=== PATIENT | male | born 1950 | race Caucasian/White ===

== ENCOUNTER 2023-04-05 03:46 | Day surgery (SDC) | payer OTHER ==
[2023-04-01 09:37] VITALS: BMI 26.5
[~2023-04-05 03:46] MED LIST: BUPIVACAINE HCL/PF 0.5% (5MG/ML) 10 ML VIAL IJ ONE
[2023-04-05] MEDS ORDERED: MIDAZOLAM HCL 2 MG/2 ML SINGLE DOSE VIAL ONE (09:11)
[2023-04-05] MEDS ORDERED: LIDOCAINE HCL/PF 2% SDV 5ML VIAL ONE (09:11)
[2023-04-05] MEDS ORDERED: PROPOFOL 20 ML ONE (09:11)
[2023-04-05] MEDS ORDERED: ROPIVACAINE HCL 0.5% 30ML VIAL ONE (09:12)
[2023-04-05] MEDS ORDERED: BUPIVACAINE HCL/PF 0.5% (5MG/ML) 10 ML VIAL ONE (09:25)
[2023-04-05] MEDS ORDERED: LIDOCAINE HCL/PF 1% SDV 5ML VIAL ONE (09:28)
[2023-04-05] MEDS ORDERED: ceFAZolin SODIUM 1 GM VIAL ONE (09:43)
[2023-04-05] MEDS ORDERED: ceFAZolin SODIUM 1 GM VIAL IVPB ONE (09:45)
[2023-04-05] MEDS ORDERED: DEXAMETHASONE SOD PHOSPHATE 4 MG/1 ML VIAL ONE (10:07)
[2023-04-05] MEDS ORDERED: ONDANSETRON 4 MG/2 ML VIAL ONE (10:07)
[2023-04-05] MEDS ORDERED: KETOROLAC TROMETHAMINE 30 MG/1 ML VIAL ONE (10:35)
[2023-04-05] MEDS ORDERED: ONDANSETRON 4 MG/2 ML VIAL IVPUSH PRN (11:23)
[2023-04-05] MEDS ORDERED: oxyCODONE HCL 5 MG TABLET PO PRN (11:23)
[2023-04-05] MEDS ORDERED: ACETAMINOPHEN 1000 MG/100 ML BAG IVPB PRN (11:24)
[2023-04-05] MEDS ORDERED: LACTATED RINGERS SOLUTION 1,000 ML IV SCH (11:30)
[2023-04-05 14:17] VITALS: RESP 16
[2023-04-05 14:19] VITALS: BP 138/75; PULSE 71; TEMP 97.1
== END 2023-04-05 13:55 | disposition home or self-care (01) ==
LOC: JASU-SURG 03:46
PROVIDERS: ATTEND Surgery
PROC: 0YU60JZ Supplement Left Inguinal Region with Synthetic Substitute, Open Approach (ICD-10-PCS; principal; 2023-04-05 09:00)
DX: K40.90 Unilateral inguinal hernia, without obstruction or gangrene, not specified as recurrent (principal)
CPT/HCPCS: 94760; C1781